=== PATIENT | male | born 1975 | race Caucasian/White ===

== ENCOUNTER 2018-11-18 16:34 | Emergency (ER) | payer BC ==
[2018-11-18] MEDS: SOD CHLORIDE 0.9% 1,000 ML IV (16:49)
[2018-11-18] MEDS: KETOROLAC 30 MG INJ IV (16:50)
[2018-11-18] MEDS: ONDANSETRON 4 MG INJ IV (16:50)
[2018-11-18] MEDS: HYDROmorphONE 1 MG/ML SYG IV (16:50)
[2018-11-18 17:01] LABS: ADD MAN DIFF? NO
[2018-11-18 17:03] LABS: WHITE BLOOD COUNT 8.3 10^3/ul (4.8-10.8)
[2018-11-18 17:03] LABS: BASOPHIL # 0.1 10^3/ul (0.0-0.1); BASOPHILS % 1.1 % (0.0-2.0); EOSINOPHILS # 0.1 10^3/ul (0.0-0.5); EOSINOPHILS % 1.4 % (0.0-7.0); HEMOGLOBIN 15.4 g/dl (14.0-18.0); LYMPHOCYTES # 1.5 10^3/ul (0.8-2.9); LYMPHOCYTES % 17.5 % (15.0-51.0); MEAN CORPUSCULAR HEMOGLOBIN 28.3 pg (29.0-33.0); MEAN CORPUSCULAR HGB CONC 34.2 g/dl (32.0-37.0); MEAN CORPUSCULAR VOLUME 82.7 fl (82.0-101.0); MEAN PLATELET VOLUME 11.7 fl (7.4-10.4); MONOCYTE # 0.4 10^3/ul (0.3-0.9); MONOCYTES % 5.3 % (0.0-11.0); NEUTROPHIL # 6.1 10^3/ul (1.6-7.5); NEUTROPHILS % 73.1 % (39.0-77.0); PLATELET COUNT 204 10^3/UL (140-415); RED BLOOD COUNT 5.44 10^6/ul (4.70-6.10); RED CELL DISTRIBUTION WIDTH 12.1 % (11.5-14.5)
[2018-11-18 17:25] LABS: ALANINE AMINOTRANSFERASE 47 IU/L (13-69); ALBUMIN 4.7 g/dl (3.3-4.9); ALKALINE PHOSPHATASE 70 IU/L (42-121); ANION GAP 12 (5-13); ASPARTATE AMINO TRANSFERASE 37 IU/L (15-46); BILIRUBIN,INDIRECT 0.6 mg/dl (0-1.1); BILIRUBIN,TOTAL 0.6 mg/dl (0.2-1.3); BLOOD UREA NITROGEN 18 mg/dl (7-20); CALCIUM 10.5 mg/dl (8.4-10.2); CARBON DIOXIDE 24 mmol/L (21-31); CHLORIDE 107 mmol/L (97-110); Estimated GFR > 60 mL/min (>60); GLUCOSE 139 mg/dl (70-220); LIPASE 66 U/L (23-300); POTASSIUM 4.2 mmol/L (3.5-5.1); SODIUM 143 mmol/L (135-144); TOTAL PROTEIN 8.3 g/dl (6.1-8.1)
[2018-11-18 18:09] LABS: ADD UMIC YES; UR ASCORBIC ACID NEGATIVE (NEGATIVE); UR BILIRUBIN (Dip) NEGATIVE (NEGATIVE); UR BLOOD (Dip) 1+ mg/dL (NEGATIVE); UR CLARITY CLEAR (CLEAR); UR COLOR YELLOW (YELLOW); UR GLUCOSE (Dip) NEGATIVE (NEGATIVE); UR KETONES (Dip) NEGATIVE (NEGATIVE); UR LEUKOCYTE ESTERASE (Dip) NEGATIVE Leu/ul (NEGATIVE); UR MUCUS FEW /HPF (NONE SEEN); UR NITRITE (Dip) NEGATIVE (NEGATIVE); UR RBC 2 /HPF (0-5); UR SPECIFIC GRAVITY (Dip) 1.017 (1.003-1.030); UR TOTAL PROTEIN (Dip) NEGATIVE (NEGATIVE); UR UROBILINOGEN (Dip) NEGATIVE (NEGATIVE); UR WBC 3 /HPF (0-5)
== END 2018-11-18 19:28 | disposition home or self-care (01) ==
LOC: E/R 16:34
DX: N20.0 Calculus of kidney (principal)
CPT/HCPCS: 36415; 74176; 80053; 81001; 83690; 85025; 96374; 96375; 99285-25

== ENCOUNTER 2018-11-19 08:22 | Observation (INO) | payer BC ==
[2018-11-19] MEDS: ONDANSETRON 4 MG INJ IV ×2 (08:45→11:43)
[2018-11-19] MEDS: SOD CHLORIDE 0.9% 1,000 ML IV ×3 (08:45→19:39)
[2018-11-19] MEDS: HYDROmorphONE 1 MG/ML SYG IV ×3 (08:46→15:28)
[2018-11-19] MEDS: KETOROLAC 30 MG INJ IV (08:46)
[2018-11-19 09:41] LABS: ADD MAN DIFF? NO
[2018-11-19 09:46] LABS: WHITE BLOOD COUNT 7.1 10^3/ul (4.8-10.8)
[2018-11-19 09:46] LABS: BASOPHIL # 0.1 10^3/ul (0.0-0.1); EOSINOPHILS # 0.2 10^3/ul (0.0-0.5); EOSINOPHILS % 2.4 % (0.0-7.0); HEMATOCRIT 43.5 % (42.0-52.0); HEMOGLOBIN 14.9 g/dl (14.0-18.0); LYMPHOCYTES # 1.2 10^3/ul (0.8-2.9); LYMPHOCYTES % 16.3 % (15.0-51.0); MEAN CORPUSCULAR HEMOGLOBIN 28.7 pg (29.0-33.0); MEAN CORPUSCULAR HGB CONC 34.3 g/dl (32.0-37.0); MEAN CORPUSCULAR VOLUME 83.7 fl (82.0-101.0); MEAN PLATELET VOLUME 11.8 fl (7.4-10.4); MONOCYTE # 0.5 10^3/ul (0.3-0.9); MONOCYTES % 6.5 % (0.0-11.0); NEUTROPHIL # 5.2 10^3/ul (1.6-7.5); PLATELET COUNT 193 10^3/UL (140-415); RED CELL DISTRIBUTION WIDTH 12.3 % (11.5-14.5)
[2018-11-19 10:06] LABS: ALANINE AMINOTRANSFERASE 42 IU/L (13-69); ALBUMIN 4.5 g/dl (3.3-4.9); ALKALINE PHOSPHATASE 59 IU/L (42-121); ANION GAP 11 (5-13); ASPARTATE AMINO TRANSFERASE 41 IU/L (15-46); BILIRUBIN,INDIRECT 0.8 mg/dl (0-1.1); BILIRUBIN,TOTAL 0.8 mg/dl (0.2-1.3); BLOOD UREA NITROGEN 22 mg/dl (7-20); CALCIUM 10.2 mg/dl (8.4-10.2); CARBON DIOXIDE 28 mmol/L (21-31); CHLORIDE 104 mmol/L (97-110); CREATININE 1.22 mg/dl (0.61-1.24); Estimated GFR > 60 mL/min (>60); GLUCOSE 118 mg/dl (70-220); POTASSIUM 3.8 mmol/L (3.5-5.1); SODIUM 143 mmol/L (135-144); TOTAL PROTEIN 7.7 g/dl (6.1-8.1)
[2018-11-19] MEDS ORDERED: ACETAMINOPHEN 325 MG TAB PO (10:30)
[2018-11-19] MEDS ORDERED: ONDANSETRON 4 MG INJ IV ×2 (10:30→12:30)
[2018-11-19] MEDS ORDERED: ZOLPIDEM 5 MG TAB PO (12:30)
[2018-11-19] MEDS: morphine 2 MG INJ IV (12:42)
[2018-11-19] MEDS: morphine 4 MG/ML VIAL IV (14:14)
[2018-11-19] MEDS ORDERED: morphine 4 MG/ML VIAL IV (15:30)
[2018-11-19 16:38] LABS: INR 0.92; PROTIME 12.5 Sec (11.9-14.9)
[2018-11-19 16:39] LABS: PARTIAL THROMBOPLASTIN TIME 25.7 Sec (23.0-35.0)
[2018-11-19 17:42] LABS: ADD UMIC YES; UR ASCORBIC ACID NEGATIVE (NEGATIVE); UR BACTERIA FEW /HPF (NONE SEEN); UR BILIRUBIN (Dip) NEGATIVE (NEGATIVE); UR BLOOD (Dip) 2+ mg/dL (NEGATIVE); UR CLARITY CLEAR (CLEAR); UR COLOR YELLOW (YELLOW); UR GLUCOSE (Dip) NEGATIVE (NEGATIVE); UR KETONES (Dip) NEGATIVE (NEGATIVE); UR LEUKOCYTE ESTERASE (Dip) NEGATIVE Leu/ul (NEGATIVE); UR MUCUS FEW /HPF (NONE SEEN); UR NITRITE (Dip) NEGATIVE (NEGATIVE); UR RBC 114 /HPF (0-5); UR SPECIFIC GRAVITY (Dip) 1.019 (1.003-1.030); UR TOTAL PROTEIN (Dip) NEGATIVE (NEGATIVE); UR UROBILINOGEN (Dip) NEGATIVE (NEGATIVE); UR WBC 4 /HPF (0-5)
[2018-11-20] MEDS: SOD CHLORIDE 0.9% 1,000 ML IV ×3 (01:50→15:24)
[2018-11-20] MEDS ORDERED: IOHEXOL 300MG/ML 30 ML BTL (11:34)
[2018-11-20] MEDS ORDERED: ROCURONIUM 50 MG INJ (12:40)
[2018-11-20] MEDS ORDERED: SEVOFLURANE 15 MIN (12:40)
[2018-11-20] MEDS ORDERED: PROPOFOL 20 ML (12:45)
[2018-11-20] MEDS ORDERED: MIDAZOLAM 1 MG/ML 2 ML INJ (12:45)
[2018-11-20] MEDS ORDERED: CEFAZOLIN 1 GM INJ (12:45)
[2018-11-20] MEDS ORDERED: ONDANSETRON 4 MG INJ (12:55)
[2018-11-20] MEDS ORDERED: KETOROLAC 30 MG INJ (12:56)
[2018-11-20] MEDS ORDERED: DEXAMETHASONE 4 MG/ML 5 ML INJ (12:56)
[2018-11-20] MEDS ORDERED: METOCLOPRAMIDE 10 MG INJ (12:56)
[2018-11-20] MEDS ORDERED: EPHEDrine 25 MG/5 ML SYG (13:12)
[2018-11-20] MEDS ORDERED: NEOSTIGMINE 3 MG/3 ML SYRINGE (13:32)
[2018-11-20] MEDS ORDERED: GLYCOPYRROLATE 0.4 MG INJ (13:32)
[2018-11-20] MEDS ORDERED: EPHEDrine 25 MG/5 ML SYG IV (14:00)
[2018-11-20] MEDS ORDERED: METOCLOPRAMIDE 10 MG INJ IV (14:00)
[2018-11-20] MEDS ORDERED: LABETALOL HCL 20MG INJ IV (14:00)
[2018-11-20] MEDS ORDERED: HYDROmorphONE 1 MG/5 ML IV SYRINGE IV ×3 (14:00)
[2018-11-20] MEDS ORDERED: FENTAnyl 50 MCG/ML VIAL IV ×3 (14:00)
[2018-11-20] MEDS ORDERED: OXYCODONE/ACETAMINOPHEN (5/325) TAB PO (14:00)
[2018-11-20] MEDS ORDERED: ONDANSETRON 4 MG INJ IV (14:00)
== END 2018-11-20 17:00 | disposition home or self-care (01) ==
LOC: E/R 08:22 → MS1 11-20 14:19
DX: N20.1 Calculus of ureter (principal)
CPT/HCPCS: 52332; 71045; 74018; 74430; 80053; 81001; 85025; 85610; 85730; 93005; 96374; 96375; 99285-25; G0378

== ENCOUNTER 2018-12-22 11:12 | Day surgery (SDC) | payer BC ==
[2018-12-22] MEDS ORDERED: FENTAnyl 50 MCG/ML VIAL IV (12:00)
[2018-12-22] MEDS ORDERED: LABETALOL HCL 20MG INJ IV (12:00)
[2018-12-22] MEDS ORDERED: OXYCODONE/ACETAMINOPHEN (5/325) TAB PO ×2 (12:00)
[2018-12-22] MEDS ORDERED: HYDROmorphONE 1 MG/5 ML IV SYRINGE IV ×2 (12:00)
[2018-12-22] MEDS ORDERED: ONDANSETRON 4 MG INJ IV (12:00)
[2018-12-22 12:02] LABS: ADD MAN DIFF? NO
[2018-12-22 12:11] LABS: WHITE BLOOD COUNT 5.5 10^3/ul (4.8-10.8)
[2018-12-22 12:12] LABS: BASOPHIL # 0.1 10^3/ul (0.0-0.1); BASOPHILS % 1.1 % (0.0-2.0); EOSINOPHILS # 0.3 10^3/ul (0.0-0.5); EOSINOPHILS % 4.7 % (0.0-7.0); HEMATOCRIT 43.7 % (42.0-52.0); HEMOGLOBIN 14.6 g/dl (14.0-18.0); LYMPHOCYTES # 1.9 10^3/ul (0.8-2.9); LYMPHOCYTES % 34.1 % (15.0-51.0); MEAN CORPUSCULAR HEMOGLOBIN 28.5 pg (29.0-33.0); MEAN CORPUSCULAR HGB CONC 33.4 g/dl (32.0-37.0); MEAN CORPUSCULAR VOLUME 85.4 fl (82.0-101.0); MEAN PLATELET VOLUME 11.7 fl (7.4-10.4); MONOCYTE # 0.3 10^3/ul (0.3-0.9); MONOCYTES % 6.1 % (0.0-11.0); NEUTROPHILS % 53.3 % (39.0-77.0); PLATELET COUNT 175 10^3/UL (140-415); RED BLOOD COUNT 5.12 10^6/ul (4.70-6.10); RED CELL DISTRIBUTION WIDTH 12.2 % (11.5-14.5)
[2018-12-22 12:21] LABS: ALANINE AMINOTRANSFERASE 42 IU/L (13-69); ALBUMIN 4.5 g/dl (3.3-4.9); ALKALINE PHOSPHATASE 58 IU/L (42-121); ANION GAP 8 (5-13); ASPARTATE AMINO TRANSFERASE 31 IU/L (15-46); BILIRUBIN,INDIRECT 0.8 mg/dl (0-1.1); BILIRUBIN,TOTAL 0.8 mg/dl (0.2-1.3); BLOOD UREA NITROGEN 14 mg/dl (7-20); CALCIUM 9.7 mg/dl (8.4-10.2); CARBON DIOXIDE 29 mmol/L (21-31); CHLORIDE 102 mmol/L (97-110); CREATININE 1.21 mg/dl (0.61-1.24); Estimated GFR > 60 mL/min (>60); GLUCOSE 89 mg/dl (70-220); POTASSIUM 4.1 mmol/L (3.5-5.1); SODIUM 139 mmol/L (135-144); TOTAL PROTEIN 7.5 g/dl (6.1-8.1)
[2018-12-22 12:23] LABS: PARTIAL THROMBOPLASTIN TIME 27.5 Sec (23.0-35.0)
[2018-12-22 12:41] LABS: PROTIME 12.3 Sec (11.9-14.9)
[2018-12-22] MEDS ORDERED: NEOSTIGMINE 3 MG/3 ML SYRINGE (12:48)
[2018-12-22] MEDS ORDERED: LIDOCAINE 2% (SDV) 5 ML INJ (12:48)
[2018-12-22] MEDS ORDERED: ROCURONIUM 50 MG INJ (12:48)
[2018-12-22] MEDS ORDERED: FENTAnyl 50 MCG/ML VIAL ×2 (12:48→13:51)
[2018-12-22] MEDS ORDERED: PROPOFOL 200 MG INJ (12:48)
[2018-12-22] MEDS ORDERED: GLYCOPYRROLATE 0.4 MG INJ (12:48)
[2018-12-22] MEDS ORDERED: MIDAZOLAM 1 MG/ML 2 ML INJ (12:48)
[2018-12-22] MEDS ORDERED: DEXAMETHASONE 4 MG/ML 5 ML INJ (13:13)
[2018-12-22] MEDS ORDERED: ONDANSETRON 4 MG INJ (13:13)
[2018-12-22] MEDS: FENTAnyl 50 MCG/ML VIAL IV ×2 (14:41→15:02)
[2018-12-22] MEDS: HYDROCODONE/APAP (5/325) TAB PO (15:00)
== END 2018-12-22 16:40 | disposition home or self-care (01) ==
LOC: SDS 11:12
DX: N20.1 Calculus of ureter (principal)
CPT/HCPCS: 52356; 71045; 74018; 74430; 80053; 85025; 85610; 85730; 87086; 88300; 93005